=== PATIENT | female | born 1985 | race African-American/Black ===

== ENCOUNTER 2021-01-03 12:10 | Outpatient (CLI) | payer OTHER, SELFPAY ==
[2021-01-03 16:58] LABS: Basophils Percent Auto 0.4 % (0.2-1.2); Eosinophils Absolute Auto 0.2 K/mm3 (0-0.3); Eosinophils Percent Auto 4.3 % (0-4.4); Hematocrit 24.7 % (37.0-47.0); Hemoglobin 7.2 g/dL (12.0-15.0); Immature Granulocyte Absolute 0.01 K/mm3 (0.00-0.031); Immature Granulocyte Percent A 0.2 % (0-0.5); Lymphocytes Absolute Auto 1.83 K/mm3 (0.9-3.2); Lymphocytes Percent Auto 36.1 % (18.3-44.2); Mean Corpuscular HGB Conc 29.1 g/dl (32-36); Mean Corpuscular Hemoglobin 18.1 pg (26-34); Mean Corpuscular Volume 62.1 fl (80-100); Mean Platelet Volume 9.1 fl (7.4-10.4); Monocytes Absolute Auto 0.6 K/mm3 (0.1-0.6); Monocytes Percent Auto 12.2 % (2.6-8.5); Neutrophils Absolute Auto 2.4 K/mm3 (1.3-6.7); Neutrophils Percent Auto 46.8 % (45.5-73.1); Platelet Count Result 312 k/mm3 (150-375); Red Blood Count 3.98 M/mm3 (4.2-5.4); Red Cell Distribution Width 19.1 % (11.5-14.5); White Blood Count 5.1 K/mm3 (4.5-10.0)
[2021-01-03 17:07] LABS: Cholesterol 175 mg/dL (0-200); HDL Direct 78 mg/dL; Triglycerides 110 mg/dL (<150)
[2021-01-03 17:17] LABS: LDL Cholesterol Direct 51 mg/dL
[2021-01-03 17:21] LABS: Hypochromasia 2+ (NORMAL); Platelet Estimate Adequate (Adequate)
[2021-01-03 17:22] LABS: Anisocytosis 3+ (NORMAL); Ovalocytes 1+ (NORMAL); Polychromasia 1+ (NORMAL); Sickle Cells 1+ (NORMAL); Target Cells 1+ (NORMAL)
== END 2021-01-03 12:11 | disposition home or self-care (01) ==
DX: Z00.00 Encounter for general adult medical examination without abnormal findings (principal); F41.9 Anxiety disorder, unspecified
CPT/HCPCS: 36415; 80061; 84443; 85025

== ENCOUNTER 2021-01-23 16:37 | Outpatient (CLI) | payer OTHER, SELFPAY ==
[2021-01-23 17:04] LABS: Basophils Absolute Auto 0.1 K/mm3 (0.0-0.1); Basophils Percent Auto 0.9 % (0.2-1.2); Eosinophils Absolute Auto 0.3 K/mm3 (0-0.3); Hemoglobin 8.4 g/dL (12.0-15.0); Immature Granulocyte Absolute 0.01 K/mm3 (0.00-0.031); Immature Granulocyte Percent A 0.2 % (0-0.5); Lymphocytes Absolute Auto 2.44 K/mm3 (0.9-3.2); Lymphocytes Percent Auto 44.4 % (18.3-44.2); Mean Corpuscular Hemoglobin 18.4 pg (26-34); Mean Corpuscular Volume 63.6 fl (80-100); Mean Platelet Volume 10.1 fl (7.4-10.4); Monocytes Absolute Auto 0.5 K/mm3 (0.1-0.6); Monocytes Percent Auto 8.2 % (2.6-8.5); Neutrophils Absolute Auto 2.2 K/mm3 (1.3-6.7); Neutrophils Percent Auto 40.3 % (45.5-73.1); Platelet Count Result 322 k/mm3 (150-375); Red Blood Count 4.56 M/mm3 (4.2-5.4); Red Cell Distribution Width 23.4 % (11.5-14.5); White Blood Count 5.5 K/mm3 (4.5-10.0)
[2021-01-23 17:36] LABS: Hypochromasia 2+ (NORMAL); Platelet Estimate Adequate (Adequate); Target Cells 2+ (NORMAL)
[2021-01-23 17:37] LABS: Ovalocytes 2+ (NORMAL)
[2021-01-23 17:41] LABS: Iron 21 ug/dL (37-170)
[2021-01-23 17:50] LABS: Percent Iron Saturation 5 % (20-50)
== END 2021-01-23 16:38 | disposition home or self-care (01) ==
LOC: ANHLAB 16:37
DX: D50.9 Iron deficiency anemia, unspecified (principal)
CPT/HCPCS: 36415; 83540; 83550; 85025

== ENCOUNTER 2022-03-02 07:39 | Outpatient (CLI) | payer OTHER, SELFPAY ==
--- NOTE | ~2022-03-02 | MR_ITS ---
EXAMINATION: MR knee LT wo con DATE: 03/02/2022 08:33 INDICATION: Acute left knee pain status post fall 02/20/2022 TECHNIQUE: Magnetic resonance imaging (MRI) of the left knee was performed without intravenous contra st. Sequences included axial PD-weighted FS FSE, coronal PD-weighted FSE and PD-weighted FS FSE, sagi ttal PD-weighted FSE, and sagittal T2-weighted FS FSE. COMPARISON: None. FINDINGS: Medial compartment: Meniscus and cartilage intact. Lateral compartment: Meniscus and cartilage intact. Patellofemoral compartment: Cartilage and retinacula intact. Ligaments and tendons: Torn superficial fibers of the MCL. The deep fibers of the MCL are also disrupted. Slight hyperintens ity within the fibers of the ACL. The PCL and LCL are intact. The remaining flexor and extensor tendo ns are intact and normal in appearance. Fluid: No significant joint fluid. Osseous/other: No suspicious focal or diffuse marrow signal. IMPRESSION: 1. High-grade MCL tear. 2. Possible low-grade ACL tear, correlate with exam findings. Reviewed, dictated and finalized at location [facility]. [facility]
== END 2022-03-02 07:40 | disposition home or self-care (01) ==
PROVIDERS: PCP Family Medicine; Visit Provider Orthopaedic Surgery
DX: S83.412A Sprain of medial collateral ligament of left knee, initial encounter (principal); T14.90XA Injury, unspecified, initial encounter
CPT/HCPCS: 73721